=== PATIENT | male | born 1970 | race Caucasian/White ===

== ENCOUNTER 2017-01-03 17:27 | Emergency (ER) | payer MEDICAID ==
[~2017-01-03] VITALS: Wt 74.8 kg
[~2017-01-03 17:27] MED LIST: ONDA4TAB35 PO
--- NOTE | 2017-01-03 20:59 | ERA ---
ER Documentation Chief Complaint Date/Time DATE: 01/03/17 TIME: 20:59 Chief Complaint SYNCOPAL EPISODE LAST NIGHT. NO NECK OR BACK NO NEURO DEFICIT. HPI The patient is a 46-year-old male, presenting to the ER because he possibly fainted after having a shot of alcoholic beverages yesterday around 1 AM. He denies any headache, neck pain, chest pain, tongue bite, fecal or urine incontinence. He denies chest pain, dyspnea, abdominal pain, vomiting. He smokes and drinks, denies illicit drug Past medical history/surgical history: None ROS All systems reviewed and are negative except as per history of present illness. Medications Home Meds Discontinued Scripts Ondansetron Hcl* (Zofran* ODT) 4 mg -ODT Tab.disper, 4 MG PO Q6 Y for NAUSEA AND /OR VOMITING, #10 TAB Prov:SCOTT SOLANO PA-C 09/22/15 Allergies Allergies: Coded Allergies: Penicillins (Unverified Allergy, Unknown, 01/03/17) PMhx/Soc Hx Alcohol Use: No Hx Substance Use: No Hx Tobacco Use: Yes Physical Exam Vitals Vital Signs Date Time Temp Pulse Resp B/P Pulse Ox O2 Delivery O2 Flow Rate FiO2 01/03/17 22:35 98.0 78 20 136/87 100 Room Air 01/03/17 17:31 97.6 100 21 133/85 97 Physical Exam Const: No acute distress. Head: Atraumatic. Eyes: Normal Conjunctiva. ENT: Normal External Ears, Nose and Mouth. Neck: Full range of motion. No meningismus. Resp: Clear to auscultation bilaterally. Cardio: Regular rate and rhythm, no murmurs. Abd: Soft, non distended, normal bowel sounds, non tender. Skin: No petechiae or rashes. Back: No midline or flank tenderness. Ext: No cyanosis, or edema. Neur: Awake and alert. No focal deficit Psych: Normal Mood and Affect. Result Diagram: 01/03/17211901/03/172119 Results 24 hrs Laboratory Tests Test 01/03/17 21:16 01/03/17 21:20 Bedside Glucose 94mg/dL Activated Partial Thromboplast Time 32.2Sec Anion Gap 14 Basophils # 10^3/ul Basophils % % Blood Morphology Comment Blood Urea Nitrogen 11mg/dl Calcium Level 8.9mg/dl Carbon Dioxide Level 27mmol/L Chloride Level 103mmol/L Creatinine 0.78mg/dl Differential Comment MANUAL DIFF Eosinophils # 10^3/ul Eosinophils % % Glucose Level 88mg/dl Hematocrit 39.6% Hemoglobin 13.2g/dl INR International Normalized Ratio 0.98 Lymphocytes # 4.910^3/ul Lymphocytes % 48.0% Mean Corpuscular Hemoglobin 27.6pg Mean Corpuscular Hemoglobin Concent 33.4g/dl Mean Corpuscular Volume 82.7fl Mean Platelet Volume 8.2fl Monocytes # 0.910^3/ul Monocytes % 9.0% Neutrophils # 4.410^3/ul Neutrophils % 43.0% Nucleated Red Blood Cells # 0.010^3/ul Nucleated Red Blood Cells % 0.0/100WBC Platelet Count 73583^3/UL Potassium Level 3.8mmol/L Prothrombin Time 13.0Sec Prothrombin Time Ratio 1.0 Red Blood Count 4.7910^6/ul Red Cell Distribution Width 13.7% Sodium Level 140mmol/L White Blood Count 10.210^3/ul Procedures/MDM EKG: Read by emergency physician Rate/Rhythm: Normal Sinus Rhythm 77 beats/min QRS, ST, T-waves: No ST elevation, no T inversion Impression: Normal EKG [place] [id number] Radiology Main Line: [phone] DIAGNOSTIC IMAGING REPORT Patient: RENITA AHMADI : 1970 Age: 46 Sex: M MR #: [id number] DOS: 01/03/172104 Ordering MD: SHANA GUY MD Location: E/R Room/Bed: PROCEDURE: CT head without Contrast CLINICAL INDICATION: Syncope TECHNIQUE: Transaxial images were made through the head on a single slice scanner without intravenous contrast. One or more of the following dose reduction techniques were used: - Automated exposure control. - Adjustment of the mA and/or kV according to patient size. - Use of iterative reconstruction technique. Radiation dose: Not given COMPARISON: None FINDINGS: Motion artifact degrades multiple images. The calvarium appears intact. The mastoid air cells and paranasal sinuses are well-aerated.. The ventricles are normal in size and there is no midline shift. No intracranial bleed, mass, or extra-axial fluid collection is identified. There is good max-white matter differentiation. IMPRESSION: Unremarkable noncontrast enhanced CT scan of the head. Physician George Date Time Electronically viewed and signed by Physician George on 01/03/2017 21:59 RH/ CC: SHANA GUY MD MEDICAL MAKING DECISION: The patient is a 46-year-old male, presenting with acute syncope of unclear etiology. The differential diagnoses considered include but are not limited to bradyarrhythmia, tachyarrhythmias, aortic outflow obstruction, neurogenic including subarachnoid hemorrhage, orthostatic hypotension and all of its causes, hypoglycemia, dysautonomia, medications. Departure Diagnosis: Primary Impression: Syncope Additional Impression: Anemia Condition: Good Comments I discussed the findings with the patient. I advised the patient to follow-up with the primary physician in about 1-2 days, sooner if needed and return if any concern. The patient's blood pressure was elevated (>120/80) but appears stable without evidence of hypertension emergency or urgency. The patient was counseled about the risks of hypertension and urged to pursue outpatient monitoring and therapy within a week with their primary care physician. SHANA GUY MD Jan 03, 2017 20:59
[2017-01-03 21:54] LABS: HEMATOCRIT 39.6 % (42.0-52.0); HEMOGLOBIN 13.2 g/dl (14.0-18.0); MEAN CORPUSCULAR HEMOGLOBIN 27.6 pg (29.0-33.0); MEAN CORPUSCULAR HGB CONC 33.4 g/dl (32.0-37.0); MEAN CORPUSCULAR VOLUME 82.7 fl (82.0-101.0); MEAN PLATELET VOLUME 8.2 fl (7.4-10.4); PLATELET COUNT 226 10^3/UL (140-440); RED BLOOD COUNT 4.79 10^6/ul (4.70-6.10); RED CELL DISTRIBUTION WIDTH 13.7 % (11.5-14.5); UNCORRECTED WBC 10.2 10^3/ul (4.8-10.8); WHITE BLOOD COUNT 10.2 10^3/ul (4.8-10.8)
[2017-01-03 21:55] LABS: POTASSIUM 3.8 mmol/L (3.5-5.1)
[2017-01-03 21:57] LABS: CREATININE 0.78 mg/dl (0.61-1.24)
[2017-01-03 21:58] LABS: CALCIUM 8.9 mg/dl (8.4-10.2); INR 0.98
[2017-01-03 22:00] LABS: CONDITION 1; LH ANALYZER COMMENTS 1; PARTIAL THROMBOPLASTIN TIME 32.2 Sec (25.0-35.0)
--- NOTE | 2017-01-03 22:00 | RADRPT ---
PROCEDURE: CT head without Contrast CLINICAL INDICATION: Syncope TECHNIQUE: Transaxial images were made through the head on a single slice scanner without intraven ous contrast. One or more of the following dose reduction techniques were used: - Automated exposure control. - Adjustment of the mA and/or kV according to patient size. - Use of iterative reconstruction technique. Radiation dose: Not given COMPARISON: None FINDINGS: Motion artifact degrades multiple images. The calvarium appears intact. The mastoid air cells and paranasal sinuses are well-aerated.. The ventricles are normal in size and there is no midline shift. No intracranial bleed, mass, or extra-axial fluid collection is identified. There is good mxa-white matter differentiation. IMPRESSION: Unremarkable noncontrast enhanced CT scan of the head. Physician George Date Time Electronically viewed and signed by Physician George on 01/03/2017 21:59 /
[2017-01-03 22:35] VITALS: BP 136/87; PULSE 78; RESP 20; TEMP 98
[2017-01-03 22:37] LABS: LYMPHOCYTES # 4.9 10^3/ul (0.8-2.9); MONOCYTE # 0.9 10^3/ul (0.3-0.9); NEUTROPHIL # 4.4 10^3/ul (1.6-7.5)
== END 2017-01-03 22:35 | disposition home or self-care (01) ==
LOC: E/R 17:27
DX: R55 Syncope and collapse (principal); D64.9 Anemia, unspecified; F17.210 Nicotine dependence, cigarettes, uncomplicated
CPT/HCPCS: 36415; 70450; 80048; 82962; 85025; 85610; 85730; 93005; Z7502

== ENCOUNTER 2017-03-24 00:03 | Emergency (ER) | payer MEDICAID ==
[~2017-03-24] VITALS: Ht 177.8 cm; Wt 72.5 kg
[2017-03-24 00:11] VITALS: Ht 177.8 cm; Wt 72.5 kg
--- NOTE | 2017-03-24 02:00 | ERD ---
ER Documentation Chief Complaint Date/Time DATE: 03/24/17 TIME: 01:58 Chief Complaint painful lump on his right groin noticed it 2 wks ago and its getting bigger HPI 46-year-old male presents here in emergency department for complaints of right groin lump on and off for the last 2 weeks, noted it to be bigger, it gets bigger and he is able to push it back in. Occasional pain on affected area sharp pain 4/10 scale. Patient denies hematuria or dysuria. Patient denies any difficulty urinating or defecating. Patient denies any pain at this time. Patient denies any nausea or vomiting. ROS All systems reviewed and are negative except as per history of present illness. Medications Home Meds Reported Medications [none] Unknown Strength No Conflict Check 03/24/17 Allergies Allergies: Coded Allergies: Penicillins (Unverified Allergy, Unknown, 01/03/17) PMhx/Soc History of Surgery: No Anesthesia Reaction: No Hx Neurological Disorder: No Hx Respiratory Disorders: No Hx Cardiac Disorders: No Hx Psychiatric Problems: No Hx Miscellaneous Medical Probl: Yes ("back injury") Hx Alcohol Use: Yes Hx Substance Use: No Hx Tobacco Use: Yes Smoking Status: Current every day smoker FmHx Family History: No coronary disease, No diabetes, No other Physical Exam Vitals Vital Signs Date Time Temp Pulse Resp B/P Pulse Ox O2 Delivery O2 Flow Rate FiO2 03/24/17 00:11 98.2 98 20 134/73 96 Physical Exam GENERAL: The patient is well developed and appropriate for usual state of health, in no apparent distress. CHEST: Clear to auscultation bilaterally. There are no rales, wheezes or rhonchi. HEART: Regular rate and rhythm. No murmurs, clicks, rubs or gallops. No S3 or S4. ABDOMEN: Soft, nontender and nondistended. Good bowel sounds. No rebound or guarding. No gross peritonitis. No gross organomegaly or masses. No Kennedy sign or McBurney point tenderness. BACK: No midline or flank tenderness. EXTREMITIES: Equal pulses bilaterally. There is no peripheral clubbing, cyanosis or edema. No focal swelling or erythema. Full range of motion. Grossly neurovascularly intact. NEURO: Alert and oriented. Cranial nerves 2-12 intact. Motor strength in all 4 extremities with 5/5 strength. Sensation grossly intact. Normal speech and gait. SKIN: There is no apparent rash or petechia. The skin is warm and dry. HEMATOLOGIC AND LYMPHATIC: There is no evidence of excessive bruising or lymphedema. No gross cervical, axillary, or inguinal lymphadenopathy. Results 24 hrs PROCEDURE: Right groin ultrasound CLINICAL INDICATION: r inguinal swelling, rule out hernia TECHNIQUE: Scanning over the right inguinal area was performed with a high frequency linear transducer COMPARISON: None FINDINGS: No definite hernia was seen in the area of an apparent palpable abnormality in the right inguinal region. No peristalsing bowel loop or fluid collection was seen. Review of the CT from 09/22/2015 showed a small fat-containing right inguinal hernia. It is not clear if the patient was performing Valsalva maneuver during the ultrasound. IMPRESSION: No definite mass or fluid collection. Prior CT showed small fat-containing right inguinal hernia. This is not appreciated by ultrasound but would likely still be present. Physician Jan Date Time Electronically viewed and signed by Uma Jarquin Physician on 03/24/2017 02 :49 LE/ CC: GADIEL MICHELLE [employer] O[employer]ATOR Procedures/MDM Medical Decision Making: She is symptoms most likely consistent with a right inguinal hernia. No symptoms of an incarcerated or strangulated hernia. Reducible hernia. No palpable hernia at this time. There is low suspicion for abdominal emergencies at this time. Patients abdominal exam is normal at this time. Patients radiology exam does not show any abdominal emergencies at this time. There is low suspicion for appendicitis, cholecystitis, abdominal aortic aneurysms or peritonitis at this time. There is low suspicion for sepsis. Patient appears well and is hemodynamically stable. Disposition: Home. Condition: Stable Prescription Tylenol, Colace, MiraLAX Instructions: Patient is advised to take medications as prescribed. Patient is advised to rest, increase fluid intake and do see general surgeon for possible removal of hernia. Patient is advised that if symptoms are worse, severe abdominal pain, uncontrolled vomiting, high fever, severe flank pain, worst signs and symptoms, to return to the emergency department immediately. Otherwise, patient can follow up with primary care doctor in 5-7 days. Departure Diagnosis: Primary Impression: Inguinal hernia Obstruction and gangrene presence: without obstruction or gangrene Laterality : unilateral Recurrence: not specified as recurrent Qualified Code: K40.90 - Unilateral inguinal hernia without obstruction or gangrene, recurrence not specified Condition: Stable Patient Instructions: Hernia (Inguinal, Ventral, Umbilical) Additional Instructions: : Patient is advised to take medications as prescribed. Patient is advised to rest, increase fluid intake and do see general surgeon for possible removal of hernia. Patient is advised that if symptoms are worse, severe abdominal pain, uncontrolled vomiting, high fever, severe flank pain, worst signs and symptoms, to return to the emergency department immediately. Otherwise, patient can follow up with primary care doctor in 5-7 days. GADIEL MICHELLE NP March 24, 2017 01:59
--- NOTE | 2017-03-24 02:50 | RADRPT ---
PROCEDURE: Right groin ultrasound CLINICAL INDICATION: r inguinal swelling, rule out hernia TECHNIQUE: Scanning over the right inguinal area was performed with a high frequency linear transd ucer COMPARISON: None FINDINGS: No definite hernia was seen in the area of an apparent palpable abnormality in the right inguinal re gion. No peristalsing bowel loop or fluid collection was seen. Review of the CT from 09/22/2015 sh owed a small fat-containing right inguinal hernia. It is not clear if the patient was performing Va lsalva maneuver during the ultrasound. IMPRESSION: No definite mass or fluid collection. Prior CT showed small fat-containing right inguinal hernia. This is not appreciated by ultrasound but would likely still be present. Physician Jan Date Time Electronically viewed and signed by Uma Jarquin Physician on 03/24/2017 02:49 LE/
[2017-03-24] MEDS ORDERED: TRAM50TA2 PO (03:01)
[2017-03-24] MEDS ORDERED: POLY17PO6 PO (03:01)
[2017-03-24] MEDS ORDERED: DOCU-144 PO (03:01)
[2017-03-24 03:39] VITALS: BP 112/78; PULSE 92; RESP 18; TEMP 98.2
== END 2017-03-24 03:39 | disposition home or self-care (01) ==
LOC: FTE 00:03
DX: K40.90 Unilateral inguinal hernia, without obstruction or gangrene, not specified as recurrent (principal); F17.210 Nicotine dependence, cigarettes, uncomplicated
CPT/HCPCS: 76536; Z7502

== ENCOUNTER 2018-03-11 02:22 | Emergency (ER) | END 2018-03-11 07:37 | disposition home or self-care (01) ==

== ENCOUNTER 2018-07-03 03:19 | Emergency (ER) | END 2018-07-03 08:35 | disposition home or self-care (01) ==

== ENCOUNTER 2018-07-10 02:31 | Emergency (ER) | END 2018-07-10 03:46 | disposition home or self-care (01) ==